=== PATIENT | male | born 1940 | race Caucasian/White ===

== ENCOUNTER 2017-02-26 13:47 | Emergency (ER) | payer MEDICARE, OTHER ==
[2017-02-26 14:07] VITALS: BP 178/91
== END 2017-02-26 15:18 | disposition left against medical advice (07) ==
LOC: JP.ED 13:47
DX: Z53.21 Procedure and treatment not carried out due to patient leaving prior to being seen by health care provider (principal)
CPT/HCPCS: 99281

== ENCOUNTER 2017-03-10 05:45 | Day surgery (SDC) | payer MEDICARE, OTHER ==
[2017-03-10] MEDS ORDERED: Sodium Chloride 0.9% 1,000 ML IV SCH (06:30)
[2017-03-10] MEDS ORDERED: Bupivacaine 0.5% 50 ML MDV ONE (06:59)
[2017-03-10] MEDS ORDERED: Lidocaine 1% with EPINEPHrine 1:100,000 50 ML MDV ONE (06:59)
[2017-03-10] MEDS ORDERED: ceFAZolin 2 GM in Sodium Chloride 0.9% 50 ML IV ONE (07:15)
[2017-03-10] MEDS ORDERED: ceFAZolin 2 GM in Premix Bag 1 BAG IV ONE (07:15)
[2017-03-10] MEDS ORDERED: metroNIDAZOLE/Normal Saline 500 MG in Premix Bag 1 BAG IV ONE (07:25)
[2017-03-10] MEDS ORDERED: Propofol 200 MG/20 ML SDV ONE ×2 (07:50→08:08)
[2017-03-10] MEDS ORDERED: Midazolam 1 MG/ML 2 ML SDV ONE (07:50)
[2017-03-10] MEDS ORDERED: fentaNYL 100 MCG/2 ML SDV ONE (07:50)
[2017-03-10] MEDS ORDERED: hydrOXYzine HCl 100 MG/2 ML SDV IM ONE (08:58)
[2017-03-10] MEDS ORDERED: fentaNYL 100 MCG/2 ML SDV IVPUSH ONE (08:58)
[2017-03-10] MEDS ORDERED: Ertapenem 1 GM in Sodium Chloride 0.9% 100 ML IV ONE (09:00)
[2017-03-10] MEDS ORDERED: Acetaminophen/HYDROcodone 325-10 MG Tab PO PRN (09:40)
[2017-03-10] MEDS ORDERED: Scopolamine 1.5 MG Transdermal Patch TRDERM ONE (10:10)
[2017-03-10] MEDS ORDERED: Ondansetron 4 MG/2 ML SDV IVPUSH ONE (10:10)
[2017-03-10 12:00] VITALS: BP 132/79
--- NOTE | 2017-03-10 12:58 | CONS ---
DATE OF SERVICE: 03/10/2017 REFERRING PHYSICIAN: CONSULTING PHYSICIAN: Mario Mancini MD REASON FOR CONSULTATION: Right lower quadrant abdominal pain. HISTORY OF PRESENT ILLNESS: A pleasant 77-year-old male, who has had a recent onset of right lower quadrant abdominal pain. He subsequently diagnosed with an incarcerated hernia. He presents for management today. This still remains painful 2-3/. This is a new problem for him. PAST MEDICAL HISTORY: Gastroesophageal reflux disease "pre diabetes", history of shoulder surgery, history of hiatal hernia, cholelithiasis, cholecystitis. PAST SURGICAL HISTORY: 1. Shoulder surgery. 2. Open gallbladder surgery. SOCIAL HISTORY: He does not smoke. He works as a resort donor. FAMILY HISTORY: Noncontributory. REVIEW OF SYSTEMS: GENERAL: The patient is appropriate for his condition. HEENT: No symptoms. CARDIOVASCULAR: The patient had a stress test recently which he states was excellent with no deficiencies. RESPIRATORY: No history of asthma. GASTROINTESTINAL: Still having bowel movements. GENITOURINARY: No dysuria. NEUROLOGICAL: No symptoms. The remainder of systems was reviewed and is negative. PHYSICAL EXAMINATION: GENERAL: The patient is appropriate for his condition. HEENT: Pupils are equal. NECK: Supple. LUNGS: Clear. CARDIOVASCULAR: Regular rhythm and rate. ABDOMEN: Bowel sounds positive. Right incarcerated inguinal hernia. ASSESSMENT: Right inguinal hernia. PLAN: The patient will undergo inguinal hernia repair. We discussed risks, benefits, alternatives, and limitations, including, but not limited to infection, bleeding, and perforation. We also discussed testicular damage due to vascular compromise, seroma, hematoma, perforation and other risks not listed here. The patient understands these risks and wished to proceed. Mario Mancini MD /[id number]
--- NOTE | 2017-03-11 08:43 | OR ---
DATE OF PROCEDURE: 03/10/2017 PROCEDURE: Right inguinal hernia repair, open. COMPLICATIONS: None. BENCH CARPENTER: None. ANESTHESIA: MAC/local. RISK: Risks, benefits, alternatives, limitations including, but not limited to infection, bleeding, and perforation were explained to patient who wished to proceed. We also discussed along with perforation of intestine, the patient can have testicular vascular compromise, hematoma, seroma formation, requirement for reoperation secondary to failure or mesh irritation of nerves. PROCEDURE IN DETAIL: The patient was placed in supine position. A slightly supraumbilical curvilinear incision was made. This was carried down with electrocautery to the external oblique aponeurosis. This was then opened sharply with a 15 blade subsequent Metzenbaum scissors. The cord structures were identified and surrounded with a Erma drain. This patient had an indirect inguinal hernia which was rather large. An extra-large plug and patch were then inserted and sewed in multiple spots with Vicryl sutures. Careful attention was made not to put undue tension on the cord structures. Once this was secured into place, a 3-0 Vicryl was used to close the external oblique aponeurosis. All layers were thoroughly irrigated. Subcutaneous tissue was closed with 3-0 Vicryl. Skin was closed with 4-0 Vicryl and Dermabond. The patient tolerated the procedure well. Of note, the patient has what appears to be a mild dermatitis on his right testicle. This was noted preoperatively. Also of note, the patient did have aspiration during this procedure. This was minimal and felt by Anesthesia to be minimal intact. Nonetheless, the patient was given a gram of Invanz prophylactically and he will be observed in the outpatient area for any signs and symptoms or complications. Also of note, the family was discussed the signs and symptoms of pneumonia and its associated possible sepsis as well as the emergency room and the fact that they should contact me if any signs of atelectasis or pneumonia ever develop. Mario Mancini MD /[id number]
== END 2017-03-10 12:15 | disposition home or self-care (01) ==
LOC: JP.SDS 05:45
PROVIDERS: ATTEND Surgery
DX: K40.90 Unilateral inguinal hernia, without obstruction or gangrene, not specified as recurrent (principal); K21.9 Gastro-esophageal reflux disease without esophagitis; E78.5 Hyperlipidemia, unspecified; E66.9 Obesity, unspecified; Z98.890 Other specified postprocedural states; Z88.8 Allergy status to other drugs, medicaments and biological substances
CPT/HCPCS: 49505; A9270; C1781; J0690; J1335; J2250; J2405; J2704; J3010; J3410; J7030; J7040; J7050

== ENCOUNTER 2017-07-11 12:10 | Emergency (ER) | payer MEDICARE, OTHER ==
[2017-07-11] MEDS ORDERED: Bacitracin Oint 1 GM U/D Packet TOP ONE (12:34)
[2017-07-11] MEDS ORDERED: Diphtheria,Pertussis(Acell),Tetanus Vaccine 0.5 ML SDV IM ONE (12:35)
--- NOTE | 2017-07-11 12:39 | EDM.PDOC ---
ED HPI GENERAL MEDICAL PROBLEM - General Chief Complaint: Laceration Stated Complaint: CUT FINGER ON RIGHT HAND Time Seen by Provider: 07/11/17 12:28 Source of Information: Reports: Patient, Family, RN Notes Reviewed History Limitations: Reports: No Limitations - History of Present Illness INITIAL COMMENTS - FREE TEXT/NARRATIVE: 77-year-old gentleman presents emergency department today with laceration to digit #2 on his left hand he accidentally injured himself with a custom grinder he has no functional complaints bleeding was controlled Left Hand Pain Score (Numeric/FACES): 8 - Related Data Allergies Allergy/AdvReac Type Severity Reaction Status Date / Time rofecoxib [From Vioxx] Allergy Intermediate Shortness Verified 07/11/17 12:30 of Breath benzonatate Allergy Cannot Verified 07/11/17 12:30 [From Tessalon Perljohanna] Remember montelukast [From Singulair] AdvReac Headache Verified 07/11/17 12:30 Home Meds: Home Meds Acetaminophen [Tylenol Arthritis Pain] 650 mg PO BID 03/01/14 [History] Aspirin [Adult Low Dose Aspirin EC] 81 mg PO DAILY 03/01/14 [History] Doxazosin Mesylate [Cardura] 8 mg PO DAILY 03/01/14 [History] Fluticasone/Salmeterol [Advair 100-50 Diskus] 1 puff INH BID 03/01/14 [History] Multivitamin with Minerals [Multiple Vitamin] 1 tab PO DAILY 03/01/14 [History] Omeprazole [Prilosec] 20 mg PO DAILY 03/01/14 [History] Valsartan [Diovan] 80 mg PO DAILY 03/01/14 [History] Furosemide [Lasix] 20 mg PO DAILY PRN 01/31/17 [History] Lutein/Minerals/Vit A,C & E [Ocuvite] 1 tab PO BID 01/31/17 [History] Ranitidine [Zantac] 150 mg PO DAILY PRN 01/31/17 [History] Past Medical History HEENT History: Reports: Impaired Vision Cardiovascular History: Reports: Hypertension Respiratory History: Reports: Other (See Below) 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 Gastrointestinal History: Reports: GERD, Hiatal Hernia Musculoskeletal History: Reports: Arthritis, Back Pain, Chronic Neurological History: Reports: Concussion Endocrine/Metabolic History: Reports: Diabetes, Type II Oncologic (Cancer) History: Reports: Other (See Below) Other Oncologic History: HAD CANCER REMOVED FROM ON TOP OF HEAD - Infectious Disease History Infectious Disease History: Reports: Chicken Pox, Measles, Mumps, Scarlet Fever - Past Surgical History Head Surgeries/Procedures: Reports: None HEENT Surgical History: Reports: None Cardiovascular Surgical History: Reports: None Respiratory Surgical History: Reports: None GI Surgical History: Reports: Cholecystectomy, Colonoscopy Endocrine Surgical History: Reports: None Neurological Surgical History: Reports: None Musculoskeletal Surgical History: Reports: Shoulder Surgery Oncologic Surgical History: Reports: None Social & Family History - Family History Family Medical History: Noncontributory - Tobacco Use Smoking Status *Q: Former Smoker Years of Tobacco use: 10 Packs/Tins Daily: 0.3 Used Tobacco, but Quit: Yes Month Tobacco Last Used: 1976 Second Hand Smoke Exposure: No - Caffeine Use Caffeine Use: Reports: Tea - Recreational Drug Use Recreational Drug Use: No ED ROS GENERAL - Review of Systems Review Of Systems: See Below Constitutional: Reports: No Symptoms GI/Abdominal: Reports: No Symptoms Musculoskeletal: Reports: Joint Pain Skin: Reports: Wound Neurological: Reports: Tingling ED EXAM, SKIN/RASH Exam: See Below Text/Narrative:: Examination left hand he does have a laceration distal aspect of digit #2 left hand completely through the dermis into the muscle tissue estimate 5 cm in length full range of motion all digits sensation is intact radial pulse +2 ED SKIN PROCEDURES - Laceration/Wound Repair Left Finger Lac/Wound length In cm: 5 Appearance: Muscle, Irregular, Moderately Contaminated Distal NVT: Neuro & Vascular Intact, No Tendon Injury Anesthetic Type: Digital Local Anesthesia - Lidocaine (Xylocaine): 1% Plain Local Anesthetic Volume: 3cc Skin Prep: Saline Saline Irrigation (cc's): 1,000 Exploration/Debridement/Repair: Wound Explored, In a Bloodless Field, Explored to Base Closed with: Sutures Suture Size: 4-0 # of Sutures: 11 Suture Type: Nylon Sterile Dressing Applied: Nurse Tetanus Status Addressed: Yes (2014) Complications: No Course - Vital Signs Last Recorded V/S: Last Vital Signs Temp 98.2 F 07/11/17 12:23 Pulse 81 07/11/17 12:23 Resp 15 07/11/17 12:23 BP 179/96 H 07/11/17 12:23 Pulse Ox 96 07/11/17 12:23 - Orders/Labs/Meds Orders: Active Orders 24 hr Category Date Time Status Vaccines to be Administered [RC] PER UNIT ROUTINE Care 07/11/17 12:35 Active ceFAZolin [Ancef] Med 07/11/17 14:45 Once 1 gm IM ONETIME ONE Medication Orders Cefazolin Sodium (Ancef) 1 gm IM ONETIME ONE Stop: 07/11/17 14:46 Meds: Medications Generic Name Dose Route Start Last Admin Trade Name Freq PRN Reason Stop Dose Admin Cefazolin Sodium 1 gm 07/11/17 14:45 Ancef IM 07/11/17 14:46 ONETIME ONE Discontinued Medications Generic Name Dose Route Start Last Admin Trade Name Freq PRN Reason Stop Dose Admin Bacitracin 1 dose 07/11/17 12:34 Bacitracin Oint 1 Gm TOP 07/11/17 12:35 ONETIME ONE Diphtheria/Tetanus/Acell Pertussis 0.5 ml 07/11/17 12:35 Adacel IM 07/11/17 12:36 .ONCE ONE Hydromorphone HCl 1 mg 07/11/17 13:41 07/11/17 14:20 Dilaudid IM 07/11/17 13:42 Not Given ONETIME ONE Lidocaine HCl 5 ml 07/11/17 12:34 Xylocaine-Mpf 1% INJECT 07/11/17 12:35 ONETIME ONE Departure - Departure Time of Disposition: 14:41 Disposition: Home, Self-Care 01 Condition: Fair Clinical Impression: Laceration of left index finger Qualifiers: Encounter type: initial encounter Damage to nail status: with damage Foreign body presence: with foreign body Qualified Code(s): S61.321A - Laceration with foreign body of left index finger with damage to nail, initial encounter Phalanx, distal fracture of finger Qualifiers: Encounter type: initial encounter Finger: index finger Fracture type: open Fracture alignment: displaced Laterality: left Qualified Code(s): S62.631B - Displaced fracture of distal phalanx of left index finger, initial encounter for open fracture - Discharge Information Referrals: Claudette Beckham NP [Primary Care Provider] - Forms: ED Department Discharge Additional Instructions: Please call [phone] Springer orthopedic surgery on Friday of next week, remain in the splint until reevaluated by orthopedic surgery use Tylenol or ibuprofen as needed for pain control, continue taking full course of antibiotics libertarian prescribed - My Orders Last 24 Hours: My Active Orders 07/11/17 12:35 Vaccines to be Administered [RC] PER UNIT ROUTINE 07/11/17 14:45 ceFAZolin [Ancef] 1 gm IM ONETIME ONE - Assessment/Plan Last 24 Hours: My Active Orders 07/11/17 12:35 Vaccines to be Administered [RC] PER UNIT ROUTINE 07/11/17 14:45 ceFAZolin [Ancef] 1 gm IM ONETIME ONE Plan: Assessment Acuity = acute Site and laterality = 5 cm laceration with comminuted fracture of distal phalangeal digit #2 left hand Etiology = trauma with the table custom grinder Manifestations = none Location of injury = Home Lab values = x-ray describes the fracture above Plan Called and discussed the case with Dr. Springer orthopedic surgery [facility] he was given Ancef 1 g now patient was on clindamycin for 10 days recommend completing that course metabolic he will follow-up with Dr. Springer in [place] call for appointment time the clinic finger also splinted Patient was in agreement with the plan all questions were answered, they were instructed to return to the emergency department or call for worsening symptoms. This note was dictated using [employer] voice recognition software please call with any questions.
--- NOTE | 2017-07-11 13:15 | CR ---
Severely comminuted second distal phalangeal fracture with multiple fracture fragments. The distal tu ft is foreshortened and displaced dorsally. Tiny fracture fragment or degenerative fragment at the do rsal aspect of the DIP joint. Soft tissue laceration and deformity.
[2017-07-11 13:31] VITALS: BP 179/96
[2017-07-11] MEDS ORDERED: ceFAZolin 1 GM Vial IM ONE ×2 (13:41→14:45)
[2017-07-11] MEDS ORDERED: HYDROmorphone 1 MG/ML Syringe IM ONE (13:41)
== END 2017-07-11 15:04 | disposition home or self-care (01) ==
LOC: JP.ED 12:10
DX: S62.631B Displaced fracture of distal phalanx of left index finger, initial encounter for open fracture (principal); S61.321A Laceration with foreign body of left index finger with damage to nail, initial encounter; I10 Essential (primary) hypertension; K21.9 Gastro-esophageal reflux disease without esophagitis; E11.9 Type 2 diabetes mellitus without complications; Z87.891 Personal history of nicotine dependence; Z23 Encounter for immunization; Z88.8 Allergy status to other drugs, medicaments and biological substances; Z79.82 Long term (current) use of aspirin; Z79.899 Other long term (current) drug therapy; W45.8XXA Other foreign body or object entering through skin, initial encounter
CPT/HCPCS: 12002; 73140; 90471; 96372; 99284; J0690; 12042; 99283-25

== ENCOUNTER 2018-04-09 07:49 | Day surgery (SDC) | payer MEDICARE, OTHER ==
[2018-04-09] MEDS ORDERED: Sodium Chloride 0.9% 1,000 ML IV SCH (08:30)
[2018-04-09] MEDS ORDERED: fentaNYL 100 MCG/2 ML SDV ONE (09:17)
[2018-04-09] MEDS ORDERED: Propofol 200 MG/20 ML SDV ONE (09:17)
[2018-04-09 11:40] VITALS: BP 144/90
--- NOTE | 2018-04-09 13:23 | OR ---
DATE OF PROCEDURE: 04/09/2018 PROCEDURES: 1. EGD. 2. Colonoscopy. PREOPERATIVE DIAGNOSES: 1. Concern for gastroesophageal reflux disease. 2. Colon cancer screening. POSTOPERATIVE DIAGNOSES: 1. Concern for gastroesophageal reflux disease. 2. Colon cancer screening. COMPLICATIONS: None. FUR TRAPPER: None. ANESTHESIA: MAC. RISKS: Risks, benefits, alternatives, and limitations including, but not limited to infection, bleeding, and perforation were explained to the patient, and they wished to proceed. PROCEDURE IN DETAIL: The patient was placed in left lateral decubitus position. The EGD scope was introduced and advanced atraumatically to the second part of the duodenum. The patient had inflammation in the duodenum consistent with duodenitis. This was biopsied using cold biopsy forceps. In the stomach, there was no ulceration; however, there was bleeding noted from the mid-esophagus. This did not have a mass-like appearance to it, just possible bleeding varices, which has improved or significant esophagitis. This was not biopsied because of the concern for varices. The remainder of the esophagus was normal. A digital rectal exam was performed next. Small hemorrhoid could be palpated. The scope was introduced and advanced atraumatically to the ileocecal valve. The scope was brought back to the colon. In the ascending and descending colons, small polyps were identified and completely removed using cold biopsy forceps and a hot snare was used on the descending. These were removed without abnormality and, again, were approximately 5 mm to 1 cm. In the rectum, on retroflex, there was a mass most likely consistent with a thrombosed hemorrhoid. Nonetheless, this was biopsied using cold biopsy forceps. The patient tolerated the procedure well. Mario Mancini MD /[id number]
== END 2018-04-09 11:50 | disposition home or self-care (01) ==
LOC: JP.SDS 07:49
PROVIDERS: ATTEND Surgery
DX: Z12.11 Encounter for screening for malignant neoplasm of colon (principal); K21.9 Gastro-esophageal reflux disease without esophagitis; K22.8 Other specified diseases of esophagus; K31.89 Other diseases of stomach and duodenum; D12.2 Benign neoplasm of ascending colon; D12.4 Benign neoplasm of descending colon; K62.1 Rectal polyp; K64.9 Unspecified hemorrhoids; I10 Essential (primary) hypertension; E11.9 Type 2 diabetes mellitus without complications
CPT/HCPCS: 43239; 45380; 45385; J2704; J3010; J7030; 88305

== ENCOUNTER 2018-10-27 06:49 | Day surgery (SDC) | payer MEDICARE, OTHER ==
[2018-10-27] MEDS ORDERED: Propofol 200 MG/20 ML SDV ONE ×2 (07:24→08:24)
[2018-10-27] MEDS ORDERED: fentaNYL 100 MCG/2 ML SDV ONE (07:24)
[2018-10-27] MEDS ORDERED: Sodium Chloride 0.9% 1,000 ML IV SCH (07:30)
[2018-10-27] MEDS ORDERED: Acetylcysteine 600 MG, Water For Injection,Sterile 57 ML ONE ×2 (08:15)
[2018-10-27] MEDS ORDERED: Alum Hydrox/Mag Hydrox/Simeth 360 ML, Lidocaine 2% 60 ML PO SCH ×2 (09:30)
[2018-10-27 09:56] VITALS: BP 177/87
--- NOTE | 2018-10-27 13:11 | OR ---
DATE OF PROCEDURE: 10/27/2018 SURGEON: Mario Mancini MD PROCEDURES: 1. Dawson's radiofrequency ablation of Dawson's esophagus. 2. Internal hemorrhoid banding. FINDINGS: 1. [place]-colored tissue consistent with Dawson's esophagus starting at about 24 cm from the esophagus. 2. Erosion noted in the distal antrum consistent with previous gastritis. COMPLICATIONS: None. FRONT DESK ADMINISTRATOR: None. ANESTHESIA: MAC. 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 PROCEDURE IN DETAIL: The patient was placed in left lateral decubitus position. The EGD scope was introduced atraumatically into the second part of the duodenum. The duodenum itself did not show any evidence of ulceration or abnormality. The scope was brought back into the stomach and noted to have mild inflammation consistent with previous gastritis. The previous ulcer that was noted prior has completely healed. The patient does have a very significant hiatal hernia approximately 5 to 8 cm in size. At about 24 cm from the incisors, the patient's Dawson's esophagus was noted. This was ablated in a circumferential fashion. The circumferential ablation was performed in typical fashion with floating guidewire, advancing the 360 catheter to about 2 cm proximal to the inferior aspect of the Dawson's esophagus. Once this was visually verified to be in place, this was insufflated and deployed. A second segment was then ablated distal to this in the same manner. All the devices were then removed. Mucosal scraping was then performed in a 360-degree fashion. The ablation was then performed a second time in same manner, same fashion, same technique, in the same sequence. Once this was performed, the area was inspected. No abnormal bleeding or any other concern was noted. The procedure was terminated. The patient tolerated the procedure well. Mario Mancini MD /[id number]
== END 2018-10-27 10:38 | disposition home or self-care (01) ==
LOC: JP.SDS 06:49
PROVIDERS: ATTEND Surgery
DX: K22.70 Barrett's esophagus without dysplasia (principal); K64.8 Other hemorrhoids; K44.9 Diaphragmatic hernia without obstruction or gangrene; I10 Essential (primary) hypertension; E11.9 Type 2 diabetes mellitus without complications; E78.5 Hyperlipidemia, unspecified; K21.9 Gastro-esophageal reflux disease without esophagitis; D86.9 Sarcoidosis, unspecified; Z85.01 Personal history of malignant neoplasm of esophagus
CPT/HCPCS: 43270; A9270; C1713; C1886; J2704; J3010; J7030

== ENCOUNTER 2019-04-20 06:27 | Day surgery (SDC) | payer MEDICARE, OTHER ==
[2019-04-20] MEDS ORDERED: Propofol 200 MG/20 ML SDV ONE ×2 (07:17→08:13)
[2019-04-20] MEDS ORDERED: fentaNYL 100 MCG/2 ML SDV ONE (07:17)
[2019-04-20] MEDS ORDERED: ceFAZolin 2 GM in Premix Bag 1 BAG IV ONE (08:00)
[2019-04-20] MEDS ORDERED: Sodium Chloride 0.9% 1,000 ML IV SCH (08:00)
[2019-04-20] MEDS ORDERED: Acetylcysteine 600 MG, Water For Injection,Sterile 57 ML ONE ×2 (08:30)
[2019-04-20] MEDS ORDERED: Alum Hydrox/Mag Hydrox/Simeth 360 ML, Lidocaine 2% 60 ML PO SCH ×2 (09:00)
[2019-04-20 09:36] VITALS: BP 139/76
--- NOTE | 2019-04-20 13:20 | OR ---
DATE OF PROCEDURE: 04/20/2019 SURGEON: Mario Mancini MD PROCEDURE: Dawson's radiofrequency ablation of distal esophagus. COMPLICATIONS: None. FOXING CLOSER: None. PREOPERATIVE DIAGNOSIS: Dawson's esophagus. POSTOPERATIVE DIAGNOSIS: Dawson's esophagus. RISKS: Risks, benefits, alternatives, and limitations including, but not limited to infection, bleeding, and perforation were explained to the patient, who wished to proceed. PROCEDURE IN DETAIL: The patient was placed in supine position. The EGD scope was introduced and advanced atraumatically into the duodenum. No abnormalities were noted. The top of the gastric fold measured at 32 cm, and the top of the Dawson's was measured at approximately 28 cm. This was ablated in a standard fashion. The wire was then passed through the scope itself. The scope was then removed. The device was then introduced. Of note, Mucomyst was used prior to device advancement. This was then centered/distally placed over the Dawson's esophagus. This was deployed x1 proximally and then moved up approximately 2 cm and then applied again. The device was then removed. The scraper was then applied to the EGD scope. This was scraped, and the procedure was then performed a second time in both locations. This was performed in a standard technique with visualization of the device in its proper location, insufflation, waiting for device readiness, RFA deployment, deflation, and removal. The patient tolerated the procedure well. Mario Mancini MD /[id number]
== END 2019-04-20 10:01 | disposition home or self-care (01) ==
LOC: JP.SDS 06:27
PROVIDERS: ATTEND Surgery
DX: K22.70 Barrett's esophagus without dysplasia (principal); K21.9 Gastro-esophageal reflux disease without esophagitis; I10 Essential (primary) hypertension; E78.5 Hyperlipidemia, unspecified; E11.9 Type 2 diabetes mellitus without complications; Z87.19 Personal history of other diseases of the digestive system; Z85.01 Personal history of malignant neoplasm of esophagus
CPT/HCPCS: A9270-GY; C1713; C1886; J0132; J0690; J2704; J3010; J7030

== ENCOUNTER 2019-08-10 06:27 | Day surgery (SDC) | payer MEDICARE, OTHER ==
[2019-08-10] MEDS ORDERED: Sodium Chloride 0.9% 1,000 ML IV SCH (06:50)
[2019-08-10] MEDS ORDERED: fentaNYL 100 MCG/2 ML SDV ONE (07:25)
[2019-08-10] MEDS ORDERED: Propofol 200 MG/20 ML SDV ONE (07:25)
[2019-08-10] MEDS ORDERED: Glycopyrrolate 0.2 MG/ML 2 ML SDV ONE (07:26)
[2019-08-10] MEDS ORDERED: Midazolam 1 MG/ML 2 ML SDV ONE (07:36)
[2019-08-10] MEDS ORDERED: Acetylcysteine 600 MG, Water For Injection,Sterile 57 ML ONE ×2 (07:45)
[2019-08-10] MEDS ORDERED: Alum Hydrox/Mag Hydrox/Simeth 360 ML, Lidocaine 2% 60 ML PO PRN ×2 (08:28)
[2019-08-10 08:52] VITALS: BP 152/86; PULSE 75
--- NOTE | 2019-08-10 13:47 | OR ---
DATE OF PROCEDURE: 08/10/2019 SURGEON: Mario Mancini MD PROCEDURE: 1. EGD. 2. Radiofrequency ablation of Dawson's esophagus, distal esophagus, top of gastric fold at 28, top of intestinal metaplasia at 32 (CPT code 38095). COMPLICATIONS: None. STATEMENT PROCESSOR: None. ANESTHESIA: MAC. RISKS: Risks, benefits, alternatives, and limitations including, but not limited to, infection, bleeding, and perforation were explained to the patient, who wished to proceed. PROCEDURE IN DETAIL: The patient was placed in left lateral decubitus position. The EGD scope was introduced and advanced atraumatically, inspecting part of the duodenum. No evidence of duodenitis or ulceration. Within the stomach itself, there was very mild gastritis, but no evidence of ulceration or abnormality. The scope was brought back and the top of gastric fold was noted to be at 28 with the top of intestinal metaplasia was 32. The wire was then introduced under direct visualization. This scope was then removed. The device was then introduced, and the scope was reintroduced. There was an overlap at the gastric fold. The probe was deployed by insufflation and then deployment of energy. A scraper was used, this was then repeated. The scope was then reintroduced, no abnormal bleeding was noted. The patient tolerated the procedure well. Mario Mancini MD /[id number]
== END 2019-08-10 09:22 | disposition home or self-care (01) ==
LOC: JP.SDS 06:27
PROVIDERS: ATTEND Surgery
DX: K22.70 Barrett's esophagus without dysplasia (principal); K29.70 Gastritis, unspecified, without bleeding; K21.9 Gastro-esophageal reflux disease without esophagitis; I10 Essential (primary) hypertension
CPT/HCPCS: 43229; A9270; C1713; C1886; J2250; J2704; J3010; J3490; J7030

== ENCOUNTER 2019-08-14 00:30 | Emergency (ER) | payer MEDICARE, OTHER ==
[2019-08-14 00:47] VITALS: PULSE 77
[2019-08-14 00:50] VITALS: BP 169/84
[2019-08-14] MEDS ORDERED: Sodium Chloride 0.9% 10 ML Syringe FLUSH PRN (01:06)
[2019-08-14] MEDS ORDERED: Ondansetron 4 MG/2 ML SDV IVPUSH ONE (01:07)
--- NOTE | 2019-08-14 01:09 | EDM.PDOC ---
ED HPI GENERAL MEDICAL PROBLEM - General Chief Complaint: Gastrointestinal Problem Stated Complaint: DIZZY,NAUSEA Time Seen by Provider: 08/14/19 01:03 Source of Information: Reports: Patient, Family, RN Notes Reviewed History Limitations: Reports: No Limitations - History of Present Illness INITIAL COMMENTS - FREE TEXT/NARRATIVE: 79-year-old gentleman presents emergency department with a complaint of nausea and vomiting, he has a history of Dawson's esophagus has recently underwent ablation within the last couple of days he states the nausea vomiting started today unable to keep any food products down denies any blood in his emesis, does feel dizzy and lightheaded abd Pain Score (Numeric/FACES): 6 - Related Data Allergies Allergy/AdvReac Type Severity Reaction Status Date / Time rofecoxib [From Vioxx] Allergy Intermediate Shortness Verified 08/14/19 00:43 of Breath benzonatate Allergy Cannot Verified 08/14/19 00:43 [From Tessalon Perles] Remember sucralfate [From Carafate] Allergy Itching Verified 08/14/19 00:43 montelukast [From Singulair] AdvReac Headache Verified 08/14/19 00:43 Home Meds: Home Meds Acetaminophen [Tylenol Arthritis Pain] 650 mg PO BID PRN 03/01/14 [History] Doxazosin Mesylate [Cardura] 8 mg PO DAILY 03/01/14 [History] Multivitamin with Minerals [Multiple Vitamin] 1 tab PO DAILY 03/01/14 [History] Furosemide [Lasix] 40 mg PO DAILY PRN 01/31/17 [History] Magnesium Citrate 150 mg PO DAILY 04/06/18 [History] diphenhydrAMINE [Benadryl] 25 mg PO BEDTIME PRN 04/06/18 [History] metFORMIN [Glucophage] 500 mg PO DAILY 04/06/18 [History] Vit C/E/Zn/Coppr/Lutein/Zeaxan [Preservision Areds 2 Softgel] 1 tab PO BID 04/28 [History] Metoprolol Succinate 25 mg PO DAILY 04/16/19 [History] Rosuvastatin Calcium 5 mg PO DAILY 04/16/19 [History] Pantoprazole Sodium [Protonix] 20 mg PO BID 04/20/19 [History] amLODIPine Besylate [Norvasc] 2.5 mg PO DAILY 08/06/19 [History] GI Cocktail 30 ml PO TIDAC 08/14/19 [History] Past Medical History HEENT History: Reports: Allergic Rhinitis, Hard of Hearing, Impaired Vision Cardiovascular History: Reports: Heart Murmur, High Cholesterol, Hypertension Respiratory History: Reports: Other (See Below) 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 Gastrointestinal History: Reports: Cholelithiasis, Colon Polyp, GERD, Hemorrhoids, Hiatal Hernia, PUD Genitourinary History: Reports: BPH, Diabetic Nephropathy Musculoskeletal History: Reports: Back Pain, Chronic, Osteoarthritis Neurological History: Reports: Concussion, Head Trauma, Neuropathy, Diabetic, Seizure Endocrine/Metabolic History: Reports: Diabetes, Type II, Obesity/BMI 30+ Hematologic History: Reports: None Immunologic History: Reports: None Oncologic (Cancer) History: Reports: Esophageal, Other (See Below) Other Oncologic History: 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 Dermatologic History: Reports: None - Infectious Disease History Infectious Disease History: Reports: Chicken Pox, Measles, Mumps, Scarlet Fever - Past Surgical History Head Surgeries/Procedures: Reports: None HEENT Surgical History: Reports: Oral Surgery, Tonsillectomy Respiratory Surgical History: Reports: None GI Surgical History: Reports: Cholecystectomy, Colonoscopy, EGD, Hernia, Inguinal Male Surgical History: Reports: None Endocrine Surgical History: Reports: None Neurological Surgical History: Reports: None Musculoskeletal Surgical History: Reports: Knee Replacement, Shoulder Surgery Oncologic Surgical History: Reports: None Dermatological Surgical History: Reports: Skin Biopsy Social & Family History - Family History Family Medical History: Noncontributory - Tobacco Use Smoking Status *Q: Former Smoker Used Tobacco, but Quit: Yes Month/Year Tobacco Last Used: 1974 - Caffeine Use Caffeine Use: Reports: Tea Caffeine Use Comment: 1 cups daily - Recreational Drug Use Recreational Drug Use: No ED ROS GENERAL - Review of Systems Review Of Systems: See Below Constitutional: Denies: Fever HEENT: Reports: No Symptoms Respiratory: Reports: No Symptoms Cardiovascular: Reports: No Symptoms GI/Abdominal: Reports: Nausea, Vomiting ED EXAM, GI/ABD - Physical Exam Exam: See Below Exam Limited By: No Limitations General Appearance: Alert, WD/WN, No Apparent Distress Respiratory/Chest: No Respiratory Distress, Lungs Clear, Normal Breath Sounds, No Accessory Muscle Use, Chest Non-Tender Cardiovascular: Regular Rate, Rhythm, Systolic Murmur GI/Abdominal Exam: Soft, Tender (Tender epigastric region) Course - Vital Signs Last Recorded V/S: Last Vital Signs Temp 96.7 F 08/14/19 01:01 Pulse 77 08/14/19 01:01 Resp 18 08/14/19 01:01 BP 169/84 H 08/14/19 01:01 Pulse Ox 94 L 08/14/19 01:01 - Orders/Labs/Meds Orders: Active Orders 24 hr Category Date Time Status Peripheral IV Care [RC] . DIRECTED Care 08/14/19 01:07 Active Lactated Ringers [Ringers, Lactated] 1,000 ml Med 08/14/19 01:15 Active IV ASDIRECTED Lactated Ringers [Ringers, Lactated] 1,000 ml Med 08/14/19 02:15 Active IV ASDIRECTED Sodium Chloride 0.9% [Saline Flush] Med 08/14/19 01:06 Active 10 ml FLUSH ASDIRECTED PRN Peripheral IV Insertion Adult [OM.PC] Urgent Oth 08/14/19 01:06 Ordered Medication Orders Lactated Ringer's (Ringers, Lactated) 1,000 mls @ 999 mls/hr IV ASDIRECTED JOVITA Last Admin: 08/14/19 01:17 Dose: 999 mls/hr Lactated Ringer's (Ringers, Lactated) 1,000 mls @ 500 mls/hr IV ASDIRECTED JOVITA Last Admin: 08/14/19 02:07 Dose: 500 mls/hr Sodium Chloride (Saline Flush) 10 ml FLUSH ASDIRECTED PRN PRN Reason: Keep Vein Open Last Admin: 08/14/19 01:17 Dose: 10 ml Labs: Laboratory Tests 08/14/19 08/14/19 08/14/19 Range/Units 01:15 01:15 01:15 WBC 5.2 (4.5-11.0) K/uL RBC 5.20 (4.30-5.90) M/uL Hgb 13.1 (12.0-15.0) g/dL Hct 41.0 (40.0-54.0) % MCV 79 L (80-98) fL MCH 25 L (27-31) pg MCHC 32 (32-36) % Plt Count 343 (150-400) K/uL Neut % (Auto) 68 H (36-66) % Lymph % (Auto) 18 L (24-44) % [place] % (Auto) 11 H (2-6) % Eos % (Auto) 3 (2-4) % Baso % (Auto) 1 (0-1) % Sodium 139 L (140-148) mmol/L Potassium 3.8 (3.6-5.2) mmol/L Chloride 102 (100-108) mmol/L Carbon Dioxide 25 (21-32) mmol/L Anion Gap 15.8 H (5.0-14.0) mmol/L BUN 18 (7-18) mg/dL Creatinine 1.2 (0.8-1.3) mg/dL Est Cr Clr Drug Dosing 42.71 mL/min Estimated GFR (MDRD) 58 L (>60) Glucose 159 H (74-106) mg/dL Lactic Acid 1.0 (0.4-2.0) mmol/L Calcium 8.8 (8.5-10.1) mg/dL Total Bilirubin 0.3 (0.2-1.0) mg/dL AST 16 (15-37) U/L ALT 20 (12-78) U/L Alkaline Phosphatase 102 (46-116) U/L Troponin I < 0.017 (0.000-0.056) ng/mL Total Protein 7.4 (6.4-8.2) g/dL Albumin 3.6 (3.4-5.0) g/dL Globulin 3.8 H (2.3-3.5) g/dL Albumin/Globulin Ratio 1.0 L (1.2-2.2) Lipase 60 L (73-393) U/L Meds: Medications Generic Name Dose Route Start Last Admin Trade Name Freq PRN Reason Stop Dose Admin Lactated Ringer's 1,000 mls @ 999 mls/hr 08/14/19 01:15 08/14/19 01:17 Ringers, Lactated IV 999 mls/hr ASDIRECTED JOVITA Administration Lactated Ringer's 1,000 mls @ 500 mls/hr 08/14/19 02:15 08/14/19 02:07 Ringers, Lactated IV 500 mls/hr ASDIRECTED JOVITA Administration Sodium Chloride 10 ml 08/14/19 01:06 08/14/19 01:17 Saline Flush FLUSH 10 ml ASDIRECTED PRN Administration Keep Vein Open Discontinued Medications Generic Name Dose Route Start Last Admin Trade Name Freq PRN Reason Stop Dose Admin Ondansetron HCl 4 mg 08/14/19 01:07 08/14/19 01:16 Zofran IVPUSH 08/14/19 01:08 4 mg ONETIME ONE Administration Departure - Departure Time of Disposition: 02:56 Disposition: Home, Self-Care 01 Condition: Fair Clinical Impression: Vomiting - Discharge Information Instructions: Nausea, Adult, [id number] Referrals: Pretty Prince PA-C [Primary Care Provider] - Forms: ED Department Discharge Additional Instructions: Use Zofran as needed for nausea and vomiting symptoms, continue to push fluids, please followup with your primary care provider in 3-5 days if not better, please call return to the emergency department with worsening of symptoms. Sepsis Event Note - Evaluation Sepsis Screening Result: No Definite Risk - Focused Exam Vital Signs: Vital Signs Temp Pulse Resp BP Pulse Ox 08/14/19 01:01 96.7 F 77 18 169/84 H 94 L 08/14/19 00:49 169/84 H 08/14/19 00:45 96.7 F 77 18 196/99 H 94 L Date Exam was Performed: 08/14/19 Time Exam was Performed: 02:55 - My Orders Last 24 Hours: My Active Orders 08/14/19 01:06 Sodium Chloride 0.9% [Saline Flush] 10 ml FLUSH ASDIRECTED PRN Peripheral IV Insertion Adult [OM.PC] Urgent 08/14/19 01:07 Peripheral IV Care [RC] . DIRECTED 08/14/19 01:15 Lactated Ringers [Ringers, Lactated] 1,000 ml IV ASDIRECTED 08/14/19 02:15 Lactated Ringers [Ringers, Lactated] 1,000 ml IV ASDIRECTED - Assessment/Plan Last 24 Hours: My Active Orders 08/14/19 01:06 Sodium Chloride 0.9% [Saline Flush] 10 ml FLUSH ASDIRECTED PRN Peripheral IV Insertion Adult [OM.PC] Urgent 08/14/19 01:07 Peripheral IV Care [RC] . DIRECTED 08/14/19 01:15 Lactated Ringers [Ringers, Lactated] 1,000 ml IV ASDIRECTED 08/14/19 02:15 Lactated Ringers [Ringers, Lactated] 1,000 ml IV ASDIRECTED Plan: Assessment Acuity = acute Site and laterality = nausea vomiting Etiology = unknown Manifestations = none Location of injury = Home Lab values = CBC CMP unremarkable Plan He had good improvement with approximate liter and half of fluids did resolve the nausea vomiting with Zofran and the dizziness improved with hydration and follow-up with primary care 3 to 5 days if not better, prescription for written for Zofran 4 mg ODT 1 tab p.o. 3 times daily PRN total #5 This note was dictated using [email or web address] voice recognition software please call with any questions on syntax or grammar.
[2019-08-14] MEDS ORDERED: Lactated Ringers 1,000 ML IV SCH ×2 (01:15→02:15)
== END 2019-08-14 03:17 | disposition home or self-care (01) ==
LOC: JP.ED 00:30
DX: R11.2 Nausea with vomiting, unspecified (principal); I10 Essential (primary) hypertension; E78.00 Pure hypercholesterolemia, unspecified; E11.40 Type 2 diabetes mellitus with diabetic neuropathy, unspecified; E66.9 Obesity, unspecified; K21.9 Gastro-esophageal reflux disease without esophagitis; Z79.899 Other long term (current) drug therapy; Z87.891 Personal history of nicotine dependence; Z88.8 Allergy status to other drugs, medicaments and biological substances; Z68.34 Body mass index [BMI] 34.0-34.9, adult
CPT/HCPCS: 36415; 80053; 83605; 83690; 84484; 85025; 96361; 96374; 99284; J2405; J7120

== ENCOUNTER 2019-11-04 07:04 | Day surgery (SDC) | payer MEDICARE, OTHER ==
[2019-11-04] MEDS ORDERED: fentaNYL 100 MCG/2 ML SDV ONE (07:35)
[2019-11-04] MEDS ORDERED: Midazolam 1 MG/ML 2 ML SDV ONE (07:36)
[2019-11-04] MEDS ORDERED: Propofol 200 MG/20 ML SDV ONE ×2 (07:36→08:18)
[2019-11-04] MEDS ORDERED: Sodium Chloride 0.9% 1,000 ML IV SCH (07:45)
[2019-11-04] MEDS ORDERED: Acetylcysteine 600 MG, Water For Injection,Sterile 57 ML ONE ×2 (08:15)
[2019-11-04] MEDS ORDERED: Alum Hydrox/Mag Hydrox/Simeth 360 ML, Lidocaine 2% 60 ML PO SCH ×2 (08:15)
[2019-11-04 09:37] VITALS: BP 154/87; PULSE 73
--- NOTE | 2019-11-04 13:51 | OR ---
DATE OF PROCEDURE: 11/04/2019 SURGEON: Mario Mancini MD PROCEDURES: 1. Barrx radiofrequency ablation. 2. Esophagogastroduodenoscopy. FINDINGS: Top of gastric fold 35 cm, top of intestinal metaplasia 24 cm. COMPLICATIONS: None. LEASE ANALYST: None. PREOPERATIVE DIAGNOSIS: Dawson's esophagus in the setting of previous esophageal cancer. 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 PATHOLOGY: Cold biopsy forceps device. Biopsies of areas of previous mucosal resection and Dawson's ablation of esophagus. RISKS: Risks, benefits, alternatives, and limitations including, but not limited to infection, bleeding, and perforation were explained to the patient, who wished to proceed. PROCEDURE IN DETAIL: The patient was placed in a left lateral decubitus position. The EGD scope was introduced and advanced atraumatically into the stomach and duodenum. No abnormalities were noted. The TRACI and TGF were measured as described above. This would be a series of 3 straddling ablations using a 360 balloon. This was performed in a standard technique with Mucomyst and followed by guidewire, then placement of the balloon under direct visualization, deployment, desufflation, and moving with an overlap of approximately 2 cm. Between the first and second rounds, a scraper type device was used to remove the ablated esophageal mucosa. This process was then repeated a second time. Of note, a second balloon device was used in this procedure due to a technical failure of the original one. No abnormalities were noted after completion of procedure. Tolerated the procedure well. Mario Mancini MD /[id number]
== END 2019-11-04 10:15 | disposition home or self-care (01) ==
LOC: JP.SDS 07:04
PROVIDERS: ATTEND Surgery
DX: K22.70 Barrett's esophagus without dysplasia (principal); I10 Essential (primary) hypertension; E78.5 Hyperlipidemia, unspecified; E11.9 Type 2 diabetes mellitus without complications; Z85.01 Personal history of malignant neoplasm of esophagus; Z98.890 Other specified postprocedural states
CPT/HCPCS: 43239; 43270; A9270; C1713; C1886; J2250; J2704; J3010; J7030

== ENCOUNTER 2020-12-29 18:08 | Emergency (ER) | payer MEDICARE ==
[2020-12-29 19:16] VITALS: BP 146/81; PULSE 87
--- NOTE | 2020-12-29 19:52 | EDM.PDOC ---
ED HPI GENERAL MEDICAL PROBLEM - General Chief Complaint: Genitourinary Problem Stated Complaint: CATHETER PAIN Time Seen by Provider: 12/29/20 19:48 Source of Information: Reports: Patient History Limitations: Reports: No Limitations - History of Present Illness INITIAL COMMENTS - FREE TEXT/NARRATIVE: Gunnar is an 80-year-old male presenting to the ED with bladder pain and a n ondraining Harrell catheter. 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 His bladder became distended starting to cause bladder spasm. While waiting here he got up to go to use the bathroom and suddenly the catheter started to flow again after he had pressed on his bladder. This instantly started to relieve his pain. Since then he has had normal flow of his urine and resolution of his symptoms. He denies any fever, chills, nausea or vomiting, diarrhea, flank or back pain. The catheter has been in place for the last 3 weeks. He has had an indwelling catheter for the last 3 months. He is scheduled to have the catheter replaced next week with Kelly at the [facility]. denies Pain Score (Numeric/FACES): 0 - Related Data Allergies Allergy/AdvReac Type Severity Reaction Status Date / Time rofecoxib [From Vioxx] Allergy Intermediate Shortness Verified 12/29/20 19:21 of Breath adhesive tape Allergy Cannot Verified 12/29/20 19:21 Remember benzonatate Allergy Cannot Verified 12/29/20 19:21 [From Tessalon Perles] Remember sucralfate [From Carafate] Allergy Itching Verified 12/29/20 19:21 montelukast [From Singulair] AdvReac Headache Verified 12/29/20 19:21 Home Meds: Home Meds Acetaminophen [Tylenol Arthritis Pain] 650 mg PO BID PRN 03/01/14 [History] Doxazosin Mesylate [Cardura] 8 mg PO DAILY 03/01/14 [History] Multivitamin with Minerals [Multiple Vitamin] 1 tab PO DAILY 03/01/14 [History] Furosemide [Lasix] 40 mg PO DAILY 01/31/17 [History] Magnesium Citrate 150 mg PO DAILY 04/06/18 [History] Metoprolol Succinate 25 mg PO BEDTIME 04/16/19 [History] Rosuvastatin Calcium 5 mg PO DAILY 04/16/19 [History] Pantoprazole Sodium [Protonix] 40 mg PO BID 04/20/19 [History] amLODIPine Besylate [Norvasc] 10 mg PO DAILY 08/06/19 [History] Aspirin [Adult Low Dose Aspirin EC] 81 mg PO DAILY 06/16/20 [History] Fluticasone Propion/Salmeterol [Fluticasone-Salmeterol 100-50] 1 each IH BID 06/16/20 [History] Nitroglycerin 0.4 mg SL ASDIRECTED PRN 06/16/20 [History] Vit C/E/Zn/Coppr/Lutein/Zeaxan [Preservision Areds 2 Softgel] 1 each PO BID 06/16/20 [History] Docusate Sodium [Colace] 200 mg PO BID 11/03/20 [History] Finasteride [Proscar] 5 mg PO DAILY 11/03/20 [History] SitaGLIPtin [Januvia] 50 mg PO DAILY 11/03/20 [History] Past Medical History HEENT History: Reports: Allergic Rhinitis, Hard of Hearing, Impaired Vision Cardiovascular History: Reports: Heart Murmur, High Cholesterol, Hypertension Respiratory History: Reports: Other (See Below) 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 Gastrointestinal History: Reports: Cholelithiasis, Colon Polyp, GERD, Hemorrhoids, Hiatal Hernia, PUD Genitourinary History: Reports: BPH, Diabetic Nephropathy Musculoskeletal History: Reports: Back Pain, Chronic, Osteoarthritis Neurological History: Reports: Concussion, Head Trauma, Neuropathy, Diabetic, Seizure Psychiatric History: Reports: None Endocrine/Metabolic History: Reports: Diabetes, Type II, Obesity/BMI 30+ Hematologic History: Reports: None Immunologic History: Reports: None Oncologic (Cancer) History: Reports: Esophageal, Other (See Below) Other Oncologic History: 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 Dermatologic History: Reports: None - Infectious Disease History Infectious Disease History: Reports: Chicken Pox, Measles, Mumps, Scarlet Fever, Shingles Other Infectious Disease History: covid vacc done x 2 - Past Surgical History Head Surgeries/Procedures: Reports: None HEENT Surgical History: Reports: Oral Surgery, Tonsillectomy Cardiovascular Surgical History: Reports: None Respiratory Surgical History: Reports: None GI Surgical History: Reports: Cholecystectomy, Colonoscopy, EGD, Hernia, Inguinal, Other (See Below) Other GI Surgeries/Procedures: BARRX x3 Male Surgical History: Reports: None Endocrine Surgical History: Reports: None Neurological Surgical History: Reports: None Musculoskeletal Surgical History: Reports: Knee Replacement, Shoulder Surgery Oncologic Surgical History: Reports: None Dermatological Surgical History: Reports: Skin Biopsy Social & Family History - Family History Family Medical History: No Pertinent Family History - Tobacco Use Tobacco Use Status *Q: Former Tobacco User Used Tobacco, but Quit: Yes Month/Year Tobacco Last Used: 1974 - Caffeine Use Caffeine Use: Reports: Tea Caffeine Use Comment: 1 cups daily - Recreational Drug Use Recreational Drug Use: No ED ROS GENERAL - Review of Systems Review Of Systems: See Below Constitutional: Reports: No Symptoms : Reports: Urinary Retention (Plugged Harrell catheter causing bladder spasm), Other (History of 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 undergoing radiation therapy.) ED EXAM, RENAL/ - Physical Exam Exam: See Below Exam Limited By: No Limitations General Appearance: Alert, No Apparent Distress Respiratory/Chest: No Respiratory Distress, Lungs Clear, Normal Breath Sounds Cardiovascular: Normal Peripheral Pulses, Regular Rate, Rhythm GI/Abdominal: Normal Bowel Sounds, Soft, Non-Tender Course - Vital Signs Last Recorded V/S: Last Vital Signs Temp 37.2 C 12/29/20 19:14 Pulse 87 12/29/20 19:14 Resp 16 12/29/20 19:14 BP 146/81 H 12/29/20 19:14 Pulse Ox 96 12/29/20 19:14 - Re-Assessments/Exams Free Text/Narrative Re-Assessment/Exam: 12/29/20 19:51 the Harrell is fully functioning now. Patient is no longer having symptoms. He is suitable for discharge home in satisfactory condition. Departure - Departure Time of Disposition: 19:51 Disposition: Home, Self-Care 01 Clinical Impression: Encounter for assessment of Harrell catheter - Discharge Information Instructions: Indwelling Urinary Catheter Care, Adult Referrals: Pretty Prince PA-C [Primary Care Provider] - Care Plan Goals: Follow-up with Pretty in the [facility] as previously scheduled next week. Return to the ED should you have any additional issues with a Harrell catheter. Sepsis Event Note (ED) - Evaluation Sepsis Screening Result: No Definite Risk - Focused Exam Vital Signs: Vital Signs Temp Pulse Resp BP Pulse Ox 12/29/20 19:14 37.2 C 87 16 146/81 H 96 - Problem List & Annotations (1) Encounter for assessment of Harrell catheter SNOMED Code(s): 301131791 Code(s): Z76.89 - [facility] IN OTH CIRCUMSTANCES Status: Acute Priority: Low Current Visit: Yes - Problem List Review Problem List Initiated/Reviewed/Updated: Yes
== END 2020-12-29 20:10 | disposition home or self-care (01) ==
LOC: JP.ED 18:08
DX: T83.091A Other mechanical complication of indwelling urethral catheter, initial encounter (principal); I10 Essential (primary) hypertension; E11.40 Type 2 diabetes mellitus with diabetic neuropathy, unspecified; E66.9 Obesity, unspecified; E11.21 Type 2 diabetes mellitus with diabetic nephropathy; Z79.899 Other long term (current) drug therapy; Z91.018 Allergy to other foods; Z88.8 Allergy status to other drugs, medicaments and biological substances; Z79.82 Long term (current) use of aspirin; Z87.891 Personal history of nicotine dependence; Z68.35 Body mass index [BMI] 35.0-35.9, adult
CPT/HCPCS: 99282; 99283

== ENCOUNTER 2020-12-30 20:19 | Emergency (ER) | payer MEDICARE ==
[2020-12-30] MEDS ORDERED: Lidocaine 2% Jelly 10 ML Urojet ONE (21:35)
[2020-12-30] MEDS ORDERED: Lidocaine 2% Jelly 10 ML Urojet MUCMEM ONE (21:47)
[2020-12-30 21:51] VITALS: BP 167/87; PULSE 85
--- NOTE | 2020-12-30 21:56 | EDM.PDOC ---
ED HPI GENERAL MEDICAL PROBLEM - General Chief Complaint: Genitourinary Problem Stated Complaint: CATH NOT WORKING Time Seen by Provider: 12/30/20 21:20 Source of Information: Reports: Patient History Limitations: Reports: No Limitations - History of Present Illness INITIAL COMMENTS - FREE TEXT/NARRATIVE: chief complaint: cath. plugged This is a 80 year old male present to ER for evaluation of chronic indwelling padilla cath problems- "plugged" again. He is here to have cath. changed. no other concerns. Onset: Today Duration: Hour(s): Location: Reports: Other (padilla cath plugged) Quality: Reports: Burning, Pressure, Same as Previous Episode Severity: Moderate Improves with: Reports: None Worsens with: Reports: None Associated Symptoms: Reports: No Other Symptoms Pelvic Pain Score (Numeric/FACES): 10 - Related Data Allergies Allergy/AdvReac Type Severity Reaction Status Date / Time rofecoxib [From Vioxx] Allergy Intermediate Shortness Verified 12/30/20 21:52 of Breath adhesive tape Allergy Cannot Verified 12/30/20 21:52 Remember benzonatate Allergy Cannot Verified 12/30/20 21:52 [From Tessalon Perles] Remember sucralfate [From Carafate] Allergy Itching Verified 12/30/20 21:52 montelukast [From Singulair] AdvReac Headache Verified 12/30/20 21:52 Home Meds: Home Meds Acetaminophen [Tylenol Arthritis Pain] 650 mg PO BID PRN 03/01/14 [History] Doxazosin Mesylate [Cardura] 8 mg PO DAILY 03/01/14 [History] Multivitamin with Minerals [Multiple Vitamin] 1 tab PO DAILY 03/01/14 [History] Furosemide [Lasix] 40 mg PO DAILY 01/31/17 [History] Magnesium Citrate 150 mg PO DAILY 04/06/18 [History] Metoprolol Succinate 25 mg PO BEDTIME 04/16/19 [History] Rosuvastatin Calcium 5 mg PO DAILY 04/16/19 [History] Pantoprazole Sodium [Protonix] 40 mg PO BID 04/20/19 [History] amLODIPine Besylate [Norvasc] 10 mg PO DAILY 08/06/19 [History] Aspirin [Adult Low Dose Aspirin EC] 81 mg PO DAILY 06/16/20 [History] Fluticasone Propion/Salmeterol [Fluticasone-Salmeterol 100-50] 1 each IH BID 06/16/20 [History] Nitroglycerin 0.4 mg SL ASDIRECTED PRN 06/16/20 [History] Vit C/E/Zn/Coppr/Lutein/Zeaxan [Preservision Areds 2 Softgel] 1 each PO BID 06/16/20 [History] Docusate Sodium [Colace] 200 mg PO BID 11/03/20 [History] Finasteride [Proscar] 5 mg PO DAILY 11/03/20 [History] SitaGLIPtin [Januvia] 50 mg PO DAILY 11/03/20 [History] Past Medical History HEENT History: Reports: Allergic Rhinitis, Hard of Hearing, Impaired Vision Cardiovascular History: Reports: Heart Murmur, High Cholesterol, Hypertension Respiratory History: Reports: Other (See Below) 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 Gastrointestinal History: Reports: Cholelithiasis, Colon Polyp, GERD, Hemorrhoids, Hiatal Hernia, PUD Genitourinary History: Reports: BPH, Diabetic Nephropathy Musculoskeletal History: Reports: Back Pain, Chronic, Osteoarthritis Neurological History: Reports: Concussion, Head Trauma, Neuropathy, Diabetic, Seizure Psychiatric History: Reports: None Endocrine/Metabolic History: Reports: Diabetes, Type II, Obesity/BMI 30+ Hematologic History: Reports: None Immunologic History: Reports: None Oncologic (Cancer) History: Reports: Esophageal, Other (See Below) Other Oncologic History: 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 Dermatologic History: Reports: None - Infectious Disease History Infectious Disease History: Reports: Chicken Pox, Measles, Mumps, Scarlet Fever, Shingles Other Infectious Disease History: covid vacc done x 2 - Past Surgical History Head Surgeries/Procedures: Reports: None HEENT Surgical History: Reports: Oral Surgery, Tonsillectomy Cardiovascular Surgical History: Reports: None Respiratory Surgical History: Reports: None GI Surgical History: Reports: Cholecystectomy, Colonoscopy, EGD, Hernia, Inguinal, Other (See Below) Other GI Surgeries/Procedures: BARRX x3 Male Surgical History: Reports: None Endocrine Surgical History: Reports: None Neurological Surgical History: Reports: None Musculoskeletal Surgical History: Reports: Knee Replacement, Shoulder Surgery Oncologic Surgical History: Reports: None Dermatological Surgical History: Reports: Skin Biopsy Social & Family History - Family History Family Medical History: No Pertinent Family History - Caffeine Use Caffeine Use: Reports: Tea Caffeine Use Comment: 1 cups daily - Living Situation & Occupation Living situation: Reports: Occupation: Retired (lives with [place] the [place], has two Sons.) ED ROS GENERAL - Review of Systems Review Of Systems: See Below Constitutional: Reports: Chills (intermittent chills, no fever), Fatigue (just finish last chemo/radiation treatment on Tuesday December 29, 2020) HEENT: Reports: No Symptoms Respiratory: Reports: No Symptoms Cardiovascular: Reports: No Symptoms Endocrine: Reports: Fatigue GI/Abdominal: Reports: No Symptoms : Reports: Pain, Other (indwelling cath. is occluded. ) Musculoskeletal: Reports: Other (has met. bone cancer) Skin: Reports: No Symptoms Neurological: Reports: No Symptoms Psychiatric: Reports: No Symptoms Hematologic/Lymphatic: Reports: No Symptoms Immunologic: Reports: No Symptoms ED EXAM, GI/ABD - Physical Exam Exam: See Below Exam Limited By: Other (pleasant neat and well groomed, with at bedside.) General Appearance: Alert, WD/WN, No Apparent Distress Eyes: Bilateral: Normal Appearance Ears: Normal External Exam Neck: Supple Respiratory/Chest: No Respiratory Distress, Lungs Clear, Normal Breath Sounds, No Accessory Muscle Use, Chest Non-Tender Cardiovascular: Normal Peripheral Pulses, Regular Rate, Rhythm, No Edema, No Gallop, No JVD, No Murmur, No Rub GI/Abdominal Exam: Normal Bowel Sounds, Soft, Non-Tender (Male) Exam: Other (padilla cath in place) Extremities: Pedal Edema Neurological: Alert, Oriented, CN II-XII Intact, Normal Cognition, Normal Gait, Normal Reflexes, No Motor/Sensory Deficits Psychiatric: Normal Affect, Normal Mood Skin Exam: Warm, Dry, Intact, Normal Color, No Rash Lymphatic: No Adenopathy ED ABDOMINAL/GI PROCEDURES - Additional/Other Procedure(s) Procedure(s) (Free Text): padilla cath changed by RN. no complications noted Course - Vital Signs Last Recorded V/S: Last Vital Signs Temp 99.3 F 12/30/20 21:49 Pulse 85 12/30/20 21:49 Resp 22 H 12/30/20 21:49 BP 167/87 H 12/30/20 21:49 Pulse Ox 97 12/30/20 21:49 - Orders/Labs/Meds Orders: Active Orders 24 hr Category Date Time Status Insert Padilla Catheter [Insert Urinary Catheter] [OM.PC] Care 12/30/20 22:00 Ordered Q24H Urinary Catheter Assessment [RC] ASDIRECTED Care 12/30/20 21:49 Active CULTURE URINE [RM] Urgent Lab 12/30/20 21:47 Received Labs: Laboratory Tests 12/30/20 Range/Units 21:47 Urine Color Yellow (YELLOW) Urine Appearance Cloudy A (CLEAR) Urine pH 6.0 (5.0-8.0) Ur Specific [place] 1.020 (1.008-1.030) Urine Protein 100 H (NEGATIVE) mg/dL Urine Glucose (UA) Negative (NEGATIVE) mg/dL Urine Ketones Negative (NEGATIVE) mg/dL Urine Occult Blood Moderate H (NEGATIVE) Urine Nitrite Negative (NEGATIVE) Urine Bilirubin Negative (NEGATIVE) Urine Urobilinogen 0.2 (0.2-1.0) EU/dL Ur Leukocyte Esterase Moderate H (NEGATIVE) Urine RBC 10-20 H (0-5) Urine WBC 50-75 H (0-5) Ur Epithelial Cells Rare Amorphous Sediment Few Urine Bacteria Moderate Urine Mucus Few Meds: Medications Discontinued Medications Generic Name Dose Route Start Last Admin Trade Name Freq PRN Reason Stop Dose Admin Lidocaine HCl Confirm 12/30/20 21:35 12/30/20 21:48 Lidocaine 2% Jelly 10 Ml Urojet Administered 12/30/20 21:36 Not Given Dose 10 ml .ROUTE .STK-MED ONE Lidocaine HCl 10 ml 12/30/20 21:47 12/30/20 21:35 Lidocaine 2% Jelly 10 Ml Urojet MUCMEM 12/30/20 21:48 10 ml ONETIME ONE Administration - Re-Assessments/Exams Free Text/Narrative Re-Assessment/Exam: 12/30/20 22:26 padilla cath changed, urine is clear yellow with sediment draining into urine bag without occlusion. Departure - Departure Time of Disposition: 22:20 Disposition: Home, Self-Care 01 Condition: Good Clinical Impression: Encounter for assessment of Padilla catheter, UTI, Urinary tract infectious disease Padilla catheter problem Qualifiers: Encounter type: initial encounter Qualified Code(s): T83.9XXA - Unspecified complication of genitourinary prosthetic device, implant and graft, initial enco unter - Discharge Information *PRESCRIPTION DRUG MONITORING PROGRAM REVIEWED*: Not Applicable *COPY OF PRESCRIPTION DRUG MONITORING REPORT IN PATIENT KHARI: Not Applicable Instructions: Indwelling Urinary Catheter Care, Adult, Urinary Tract Infection, Adult, [id number] Referrals: PCP,None [Primary Care Provider] - Forms: ED Department Discharge Care Plan Goals: Padilla Catheter Problem -inserted new 18 swedish padilla cath -daily catheter care -follow up with Primary Care Provider as scheduled -Return to ER if has any concerns or catheter become "plugged" again. Bladder infection (Urinary Tract Infection) -urine sample positive for bladder infection -urine culture pending -start antibiotic tonight- Cipro take one tablet by mouth two times a day ( has prescription at home) -drink plenty of water -follow up with Primary Care for recheck on Friday sooner if has any concerns -Return to ER for any fever, chills, back pain, weakness, rash or any concerns. Sepsis Event Note (ED) - Focused Exam Vital Signs: Vital Signs Temp Pulse Resp BP Pulse Ox 12/30/20 21:49 99.3 F 85 22 H 167/87 H 97 - Problem List & Annotations (1) Padilla catheter problem SNOMED Code(s): 529938951 Code(s): T83.9XXA - UNSP COMPLICATION OF GENITOURINARY PROSTH DEV/GRFT, INIT Status: Acute Priority: High Current Visit: Yes Qualifiers: Encounter type: initial encounter Qualified Code(s): T83.9XXA - Unspecified complication of genitourinary prosthetic device, implant and graft, initial encounter - Problem List Review Problem List Initiated/Reviewed/Updated: Yes - My Orders Last 24 Hours: My Active Orders 12/30/20 21:47 CULTURE URINE [RM] Urgent 12/30/20 21:49 Urinary Catheter Assessment [RC] ASDIRECTED 12/30/20 22:00 Insert Padilla Catheter [Insert Urinary Catheter] [OM.PC] Q24H - Assessment/Plan Last 24 Hours: My Active Orders 12/30/20 21:47 CULTURE URINE [RM] Urgent 12/30/20 21:49 Urinary Catheter Assessment [RC] ASDIRECTED 12/30/20 22:00 Insert Padilla Catheter [Insert Urinary Catheter] [OM.PC] Q24H Plan: Padilla Catheter Problem -inserted new 18 swedish padilla cath -daily catheter care -urine test for infection is positive -follow up with Primary Care Provider as scheduled -Return to ER if has any concerns or catheter become "plugged" again. Bladder infection (Urinary Tract Infection) -urine sample positive for bladder infection -urine culture pending -start antibiotic tonight- Cipro one tablet two times a day for 10 days -drink plenty of water -follow up with Primary Care for recheck on Friday sooner if has any concerns -Return to ER for any fever, chills, back pain, weakness, rash or any concerns.
== END 2020-12-30 22:57 | disposition home or self-care (01) ==
LOC: JP.ED 20:19
DX: T83.511A Infection and inflammatory reaction due to indwelling urethral catheter, initial encounter (principal); T83.091A Other mechanical complication of indwelling urethral catheter, initial encounter; N39.0 Urinary tract infection, site not specified; I10 Essential (primary) hypertension; E11.9 Type 2 diabetes mellitus without complications; E66.9 Obesity, unspecified; Z68.35 Body mass index [BMI] 35.0-35.9, adult; Z79.82 Long term (current) use of aspirin; Z91.018 Allergy to other foods; Z88.8 Allergy status to other drugs, medicaments and biological substances
CPT/HCPCS: 51702; 81001; 87086; 87088; 87186; 99283; 99283-25

== ENCOUNTER 2021-06-12 11:55 | Emergency (ER) | payer MEDICARE ==
[2021-06-12 12:05] VITALS: BP 153/75; PULSE 100
--- NOTE | 2021-06-12 12:27 | EDM.PDOC ---
ED HPI GENERAL MEDICAL PROBLEM - General Chief Complaint: General Stated Complaint: VOMITTING/DIAREH Time Seen by Provider: 06/12/21 12:30 Source of Information: Reports: Patient, Family History Limitations: Reports: No Limitations - History of Present Illness INITIAL COMMENTS - FREE TEXT/NARRATIVE: 81-year-old male with metastatic bone cancer, was scheduled to have an infusion today but overnight developed nausea and vomiting and diarrhea. He is not on an antibiotic, he does not have a fever, he is not struggling with any increased pain. Just has very watery profuse diarrhea and persistent nausea and vomiting. No blood in the emesis or diarrhea. He is usually very active, and yesterday he was "shoveling dirt", today he is too weak to walk without help. He is fully vaccinated for Covid. Onset: Unknown/Unsure (Symptoms started overnight) Improves with: Reports: None Worsens with: Reports: None Associated Symptoms: Reports: Malaise, Nausea/Vomiting, Weakness, Other (Diarrhea). Denies: Chest Pain, Cough - Related Data Allergies Allergy/AdvReac Type Severity Reaction Status Date / Time rofecoxib [From Vioxx] Allergy Intermediate Shortness Verified 06/12/21 12:19 of Breath adhesive tape Allergy Cannot Verified 06/12/21 12:19 Remember benzonatate Allergy Cannot Verified 06/12/21 12:19 [From Tessalon Perles] Remember sucralfate [From Carafate] Allergy Itching Verified 06/12/21 12:19 montelukast [From Singulair] AdvReac Headache Verified 06/12/21 12:19 Home Meds: Home Meds Acetaminophen [Tylenol Arthritis Pain] 650 mg PO BID PRN 03/01/14 [History] Doxazosin Mesylate [Cardura] 8 mg PO DAILY 03/01/14 [History] Multivitamin with Minerals [Multiple Vitamin] 1 tab PO DAILY 03/01/14 [History] Furosemide [Lasix] 40 mg PO DAILY 01/31/17 [History] Magnesium Citrate 150 mg PO DAILY 04/06/18 [History] Metoprolol Succinate 25 mg PO BEDTIME 04/16/19 [History] Rosuvastatin Calcium 5 mg PO DAILY 04/16/19 [History] Pantoprazole Sodium [Protonix] 40 mg PO BID 04/20/19 [History] amLODIPine Besylate [Norvasc] 10 mg PO DAILY 08/06/19 [History] Aspirin [Adult Low Dose Aspirin EC] 81 mg PO DAILY 06/16/20 [History] Fluticasone Propion/Salmeterol [Fluticasone-Salmeterol 100-50] 1 each IH BID 06/16/20 [History] Nitroglycerin 0.4 mg SL ASDIRECTED PRN 06/16/20 [History] Vit C/E/Zn/Coppr/Lutein/Zeaxan [Preservision Areds 2 Softgel] 1 each PO BID 06/16/20 [History] Docusate Sodium [Colace] 200 mg PO BID 11/03/20 [History] Finasteride [Proscar] 5 mg PO DAILY 11/03/20 [History] SitaGLIPtin [Januvia] 50 mg PO DAILY 11/03/20 [History] Past Medical History HEENT History: Reports: Allergic Rhinitis, Hard of Hearing, Impaired Vision Cardiovascular History: Reports: Heart Murmur, High Cholesterol, Hypertension Respiratory History: Reports: Other (See Below) 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 Gastrointestinal History: Reports: Cholelithiasis, Colon Polyp, GERD, Hemorrhoids, Hiatal Hernia, PUD Genitourinary History: Reports: BPH, Diabetic Nephropathy Musculoskeletal History: Reports: Back Pain, Chronic, Osteoarthritis Neurological History: Reports: Concussion, Head Trauma, Neuropathy, Diabetic, Seizure Psychiatric History: Reports: None Endocrine/Metabolic History: Reports: Diabetes, Type II, Obesity/BMI 30+ Hematologic History: Reports: None Immunologic History: Reports: None Oncologic (Cancer) History: Reports: Esophageal, Other (See Below) Other Oncologic History: 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 Dermatologic History: Reports: None - Infectious Disease History Infectious Disease History: Reports: Chicken Pox, Measles, Mumps, Scarlet Fever, Shingles Other Infectious Disease History: covid vacc done x 2 - Past Surgical History Head Surgeries/Procedures: Reports: None HEENT Surgical History: Reports: Oral Surgery, Tonsillectomy Cardiovascular Surgical History: Reports: None Respiratory Surgical History: Reports: None GI Surgical History: Reports: Cholecystectomy, Colonoscopy, EGD, Hernia, Inguinal, Other (See Below) Other GI Surgeries/Procedures: BARRX x3 Male Surgical History: Reports: None Endocrine Surgical History: Reports: None Neurological Surgical History: Reports: None Musculoskeletal Surgical History: Reports: Knee Replacement, Shoulder Surgery Oncologic Surgical History: Reports: None Dermatological Surgical History: Reports: Skin Biopsy Social & Family History - Family History Family Medical History: No Pertinent Family History - Tobacco Use Tobacco Use Status *Q: Never Tobacco User Second Hand Smoke Exposure: No - Caffeine Use Caffeine Use: Reports: Tea Caffeine Use Comment: 1 cups daily - Recreational Drug Use Recreational Drug Use: No - Living Situation & Occupation Living situation: Reports: Occupation: Retired (lives with [employer] [place] the [place], has two Sons.) ED ROS GENERAL - Review of Systems Review Of Systems: See Below Constitutional: Reports: Malaise. Denies: Fever, Chills HEENT: Denies: Vision Change Respiratory: Denies: Shortness of Breath Cardiovascular: Denies: Chest Pain GI/Abdominal: Reports: Diarrhea, Nausea, Vomiting, Other (Mild intermittent abdominal cramps). Denies: Abdominal Pain : Reports: No Symptoms Skin: Reports: Bruising (Bruises easily) Neurological: Reports: Dizziness, Weakness Psychiatric: Reports: No Symptoms ED EXAM, GENERAL - Physical Exam Exam: See Below Exam Limited By: No Limitations General Appearance: Alert, No Apparent Distress, Other (Looks ill but not distressed) Eye Exam: Bilateral Eye: Normal Inspection (No jaundice) Head: Atraumatic Respiratory/Chest: No Respiratory Distress, Lungs Clear Cardiovascular: Regular Rate, Rhythm. No: Tachycardia GI/Abdominal: Soft, Non-Tender Extremities: Other (Just a trace of ankle edema is present). No: Slow Capillary Refill Neurological: Alert, Oriented, No Motor/Sensory Deficits (Diffusely weak but no asymmetry) Psychiatric: Normal Affect, Normal Mood Skin Exam: Warm, Dry Course - Vital Signs Last Recorded V/S: Last Vital Signs Temp 97.9 F 06/12/21 12:26 Pulse 100 06/12/21 12:26 Resp 18 06/12/21 12:04 BP 153/75 H 06/12/21 12:26 Pulse Ox 95 06/12/21 12:26 - Orders/Labs/Meds Labs: Laboratory Tests 06/12/21 06/12/21 Range/Units 12:53 12:53 WBC 3.0 L (4.5-11.0) K/uL RBC 5.06 (4.30-5.90) M/uL Hgb 13.9 (12.0-15.0) g/dL Hct 41.7 (40.0-54.0) % MCV 82 (80-98) fL MCH 28 (27-31) pg MCHC 33 (32-36) % Plt Count 306 (150-400) K/uL Add Manual Diff Yes Neutrophils % (Manual) 78 H (36-66) % Band Neutrophils % 3 L (5-11) % Lymphocytes % (Manual) 6 L (24-44) % Monocytes % (Manual) 13 H (2-6) % Sodium 139 L (140-148) mmol/L Potassium 4.6 (3.6-5.2) mmol/L Chloride 102 (100-108) mmol/L Carbon Dioxide 23 (21-32) mmol/L Anion Gap 18.6 H (5.0-14.0) mmol/L BUN 30 H D (7-18) mg/dL Creatinine 1.7 H (0.8-1.3) mg/dL Est Cr Clr Drug Dosing 29.14 mL/min Estimated GFR (MDRD) 39 L (>60) Glucose 247 H (74-106) mg/dL Calcium 8.7 (8.5-10.1) mg/dL Total Bilirubin 0.7 D (0.2-1.0) mg/dL AST 25 (15-37) U/L ALT 29 (12-78) U/L Alkaline Phosphatase 99 (46-116) U/L Total Protein 7.1 (6.4-8.2) g/dL Albumin 3.7 (3.4-5.0) g/dL Globulin 3.4 (2.3-3.5) g/dL Albumin/Globulin Ratio 1.1 L (1.2-2.2) Meds: Medications Discontinued Medications Generic Name Dose Route Start Last Admin Trade Name Freq PRN Reason Stop Dose Admin Sodium Chloride 1,000 mls @ 999 mls/hr 06/12/21 12:49 06/12/21 13:04 Normal Saline IV 06/12/21 13:49 999 mls/hr ONETIME ONE Administration Ondansetron HCl 4 mg 06/12/21 12:49 06/12/21 13:03 Ondansetron 4 Mg/2 Ml Sdv IVPUSH 06/12/21 12:50 4 mg ONETIME ONE Administration - Re-Assessments/Exams Free Text/Narrative Re-Assessment/Exam: 06/12/21 12:48 An IV will be started and the patient will be hydrated with normal saline, given Zofran and a CBC CMP obtained and a stool sample if possible. 06/12/21 18:07 Patient was in the emergency room over course of 3 hours and had no additional diarrheal stools. Labs returned reassuring and patient felt better after hydration and Zofran. He was discharged with 5 additional doses, will take those every 6 hours as needed if he redevelops nausea and try to increase his diet and activity as tolerated. He will return if worsening. Departure - Departure Time of Disposition: 14:56 Disposition: Home, Self-Care 01 Clinical Impression: Gastroenteritis - Discharge Information Instructions: Diarrhea, Adult, [id number] Referrals: Pretty Prince PA-C [Primary Care Provider] - Forms: ED Department Discharge Care Plan Goals: Use Zofran under your tongue every 6-8 hours for nausea or vomiting if it recurs. Advance diet slowly concentrating on fluids, and increase activity as tolerated. Try to continue your other regular medications. Return in 1 to 2 days if not improving satisfactorily. Sepsis Event Note (ED) - Evaluation Sepsis Screening Result: No Definite Risk - Focused Exam Vital Signs: Vital Signs Temp Pulse Resp BP Pulse Ox 06/12/21 12:26 97.9 F 100 153/75 H 95 06/12/21 12:04 97.9 F 100 18 153/75 H 95
[2021-06-12] MEDS ORDERED: Sodium Chloride 0.9% 1,000 ML IV ONE (12:49)
[2021-06-12] MEDS ORDERED: Ondansetron 4 MG/2 ML SDV IVPUSH ONE (12:49)
== END 2021-06-12 15:09 | disposition home or self-care (01) ==
LOC: JP.ED 11:55
DX: K52.9 Noninfective gastroenteritis and colitis, unspecified (principal); E78.00 Pure hypercholesterolemia, unspecified; I10 Essential (primary) hypertension; K21.9 Gastro-esophageal reflux disease without esophagitis; E11.21 Type 2 diabetes mellitus with diabetic nephropathy; E11.40 Type 2 diabetes mellitus with diabetic neuropathy, unspecified; M19.90 Unspecified osteoarthritis, unspecified site; E66.9 Obesity, unspecified; Z68.37 Body mass index [BMI] 37.0-37.9, adult; Z88.8 Allergy status to other drugs, medicaments and biological substances; Z91.048 Other nonmedicinal substance allergy status; Z79.82 Long term (current) use of aspirin; Z79.899 Other long term (current) drug therapy
CPT/HCPCS: 36415; 80053; 85025; 96374; 99284; J2405; J7030

== ENCOUNTER 2022-04-28 07:26 | Emergency (ER) | payer MEDICARE ==
[2022-04-28 08:28] VITALS: BP 157/98; PULSE 58
== END 2022-04-28 08:34 | disposition home or self-care (01) ==
LOC: JP.ED 07:26
DX: S01.81XA Laceration without foreign body of other part of head, initial encounter (principal); K21.9 Gastro-esophageal reflux disease without esophagitis; I10 Essential (primary) hypertension; E11.9 Type 2 diabetes mellitus without complications; E66.9 Obesity, unspecified; Z68.30 Body mass index [BMI] 30.0-30.9, adult; Z88.1 Allergy status to other antibiotic agents; Z88.8 Allergy status to other drugs, medicaments and biological substances; Z79.899 Other long term (current) drug therapy; Z79.82 Long term (current) use of aspirin; Z90.49 Acquired absence of other specified parts of digestive tract; W08.XXXA Fall from other furniture, initial encounter
CPT/HCPCS: 99283

== ENCOUNTER 2022-06-24 10:33 | Emergency (ER) | payer MEDICARE ==
[2022-06-24] MEDS ORDERED: Sodium Chloride 0.9% 10 ML Syringe FLUSH PRN ×2 (11:29)
[2022-06-24 12:10] LABS: ESTIMATED GFR 21 mL/min (>60); TROPONIN I HIGH SENSITIVITY 44.2 pg/mL (<=60.3)
[2022-06-24 14:47] VITALS: BP 123/72; PULSE 107
[2022-06-24] MEDS ORDERED: Heparin Sodium/D5W 25,000 UNITS/500 ML BAG IV SCH (15:45)
[2022-06-24] MEDS ORDERED: Heparin Sodium 5,000 Units/ML Vial IVPUSH ONE (15:47)
== END 2022-06-24 17:22 ==
LOC: JP.ED 10:33
DX: I26.99 Other pulmonary embolism without acute cor pulmonale (principal); E78.00 Pure hypercholesterolemia, unspecified; I10 Essential (primary) hypertension; K21.9 Gastro-esophageal reflux disease without esophagitis; N40.0 Benign prostatic hyperplasia without lower urinary tract symptoms; E11.21 Type 2 diabetes mellitus with diabetic nephropathy; E11.40 Type 2 diabetes mellitus with diabetic neuropathy, unspecified; M19.90 Unspecified osteoarthritis, unspecified site; R00.0 Tachycardia, unspecified; E66.9 Obesity, unspecified; Z68.37 Body mass index [BMI] 37.0-37.9, adult; Z88.8 Allergy status to other drugs, medicaments and biological substances; Z91.048 Other nonmedicinal substance allergy status; Z79.82 Long term (current) use of aspirin; Z79.899 Other long term (current) drug therapy
CPT/HCPCS: 36415; 71046; 80053; 81001; 83605; 83880; 84484; 85025; 85379; 93005; 96365; 96376; 99285; J1644; J3490